=== PATIENT | male | born 1995 | race African-American/Black ===

== ENCOUNTER 2017-02-22 14:36 | Emergency (ER) | payer OTHER ==
[~2017-02-22] VITALS: Ht 177.8 cm; Wt 86.4 kg
[~2017-02-22 14:36] MED LIST: FLAGYL500 MG PO
[2017-02-22 14:38] VITALS: BP 135/72; PULSE 69; TEMP 98.3
[2017-02-22 15:46] LABS: PH 6 (5-8); SQUAMOUS EPITHELIAL None Seen /hpf; URINE APPEARANCE Clear; URINE BACTERIA None Seen /hpf; URINE BILIRUBIN Negative (NEGATIVE); URINE BLOOD Negative (NEGATIVE); URINE COLOR Straw; URINE GLUCOSE Negative (NEGATIVE); URINE KETONE Negative (NEGATIVE); URINE RBC None Seen /hpf; URINE UROBILINOGEN Negative (NEGATIVE); URINE WBC 0-2 /hpf
[2017-02-22 17:16] LABS: CHLAMYDIA/TRACH by PCR Male DETECTED; Neisseria Gon by PCR Male NOT DETECTED
== END 2017-02-22 16:37 | disposition home or self-care (01) ==
LOC: COL.ER 14:36
PROVIDERS: Physician Assistant
DX: R30.0 Dysuria (principal)
CPT/HCPCS: J0696